=== PATIENT | female | born 1985 | race Caucasian/White ===

== ENCOUNTER 2019-12-07 13:20 | Inpatient (IN) | payer BC ==
[~2019-12-07] VITALS: Ht 157.5 cm; Wt 83.9 kg
[2019-12-07 13:54] VITALS: BP 114/67; BMI 33.9
[2019-12-07 14:18] LABS: BASOPHILS 0.2 % (0-2); EOSINOPHILS 1.4 % (0-7); HEMATOCRIT 40.1 % (36.0-48.0); HEMOGLOBIN 13.5 g/dL (12-16); IMMATURE GRANULOCYTES 0.2 % (0-5); LYMPHOCYTES 12.5 % (15-50); MCH 31.6 pg (26.0-34.0); MCHC 33.7 g/dL (31.0-37.0); MCV 93.9 fL (80.0-100.0); MEAN PLATELET VOLUME 9.1 fL (7.4-10.4); MONOCYTES 8.5 % (2-11); NEUTROPHILS 77.2 % (40-80); PLATELET COUNT 193 10x3/uL (130-400); RBC 4.27 10x6/uL (4.00-5.40); RDW 13.7 % (11.5-14.5)
[2019-12-07 14:33] LABS: CALC OSMOLALITY 268 mosm/kg (275-300); CALCIUM 8.2 mg/dL (8.5-10.1); CARBON DIOXIDE 26.7 mmol/L (21.0-32.0); CHLORIDE - SERUM 101 mmol/L (98-107); CREATININE - SERUM 0.9 mg/dL (0.6-1.3); GLUCOSE 98 mg/dL (74-106); POTASSIUM - SERUM 3.9 mmol/L (3.5-5.1); SODIUM 135 mmol/L (136-145); UREA NITROGEN 9 mg/dL (7-18); eGFR NON AFRICAN AMERICAN 76 mL/min (90-120)
[2019-12-07 14:37] LABS: C-REACTIVE PROTEIN 15.5 mg/dL (0.0-0.9)
[2019-12-07 14:39] LABS: INR 3.38 (0.85-1.17); PROTIME 33.5 SECONDS (11.6-15.0)
--- NOTE | 2019-12-07 14:42 | NUR ---
RN INSERTED 20G PIV INTO RIGHT FOREARM, PT TOLERATED WELL.
[2019-12-07 15:19] LABS: ERYTHROCYTE SEDIMENTATION RATE 12 mm/hr (0-20)
[2019-12-07 16:33] VITALS: BP 129/62
[2019-12-07 20:00] VITALS: BP 126/70
[2019-12-08 00:18] VITALS: BP 132/69
[2019-12-08 04:00] VITALS: BP 130/72
[2019-12-08 05:36] LABS: BASOPHILS 0.4 % (0-2); EOSINOPHILS 2.1 % (0-7); HEMATOCRIT 37.6 % (36.0-48.0); IMMATURE GRANULOCYTES 0.1 % (0-5); LYMPHOCYTES 21.1 % (15-50); MCH 30.7 pg (26.0-34.0); MCHC 31.9 g/dL (31.0-37.0); MONOCYTES 12.8 % (2-11); NEUTROPHILS 63.5 % (40-80); PLATELET COUNT 192 10x3/uL (130-400); RBC 3.91 10x6/uL (4.00-5.40); RDW 14.2 % (11.5-14.5)
[2019-12-08 05:38] LABS: MCV 96.2 fL (80.0-100.0); WBC 7.1 10x3/uL (4.8-10.8)
[2019-12-08 05:49] LABS: CALC OSMOLALITY 280 mosm/kg (275-300); CALCIUM 8.2 mg/dL (8.5-10.1); CHLORIDE - SERUM 107 mmol/L (98-107); CREATININE - SERUM 0.7 mg/dL (0.6-1.3); GLUCOSE 100 mg/dL (74-106); POTASSIUM - SERUM 4.2 mmol/L (3.5-5.1); SODIUM 140 mmol/L (136-145); UREA NITROGEN 18 mg/dL (7-18); eGFR NON AFRICAN AMERICAN > 90 mL/min (90-120)
[2019-12-08 06:24] LABS: INR 3.6 (0.85-1.17); PROTIME 35.2 SECONDS (11.6-15.0)
[2019-12-08 09:42] VITALS: BP 112/68
[2019-12-08 12:47] VITALS: Ht 157.5 cm; Wt 83.9 kg
[2019-12-08 12:52] VITALS: BP 107/56
[2019-12-08 17:15] VITALS: BP 106/51
[2019-12-08 20:00] VITALS: BP 127/63
[2019-12-08 22:06] LABS: BILIRUBIN NEGATIVE (NEGATIVE); GLUCOSE NEGATIVE (NEGATIVE); KETONE NEGATIVE (NEGATIVE); NITRITE NEGATIVE (NEGATIVE); UROBILINOGEN NORMAL (NORMAL)
[2019-12-08 22:10] LABS: BACTERIA FEW /hpf (NEGATIVE); EPITHELIAL CELLS 0-5 /hpf (0-5); RED CELLS - URINE 0-5 /hpf (0-5); WHITE CELLS - URINE NSEEN /hpf (NEGATIVE)
[2019-12-09] VITALS: BP 131/60
[2019-12-09 04:00] VITALS: BP 125/64
[2019-12-09 07:12] LABS: INR 2.2 (0.85-1.17); PROTIME 24.1 SECONDS (11.6-15.0)
--- NOTE | 2019-12-09 09:00 | NUR ---
DRESSING CHANGED TO LEFT ARM WITH SPLINT REAPPLIED. IV RESITED TO RIGHT FOREARM. NORCO GIVEN FOR PAIN 12/16 AND EFFECTIVE. DECREASE ERRYTHEMA AND EDEMA NOTED WITH ARM ELEVATED AND CAP REFILL <3 SEC.
[2019-12-09 09:07] VITALS: BP 128/83
[2019-12-09 13:48] VITALS: BP 153/66
[2019-12-09 17:03] VITALS: BP 152/81
[2019-12-09 20:00] VITALS: BP 137/68
[2019-12-10] VITALS: BP 142/70
--- NOTE | 2019-12-10 02:10 | NUR ---
I have reviewed this patient and I concur with the Shift Assessment completed by the Licensed Practical Nurse today this shift.
[2019-12-10 06:11] LABS: BASOPHILS 0.7 % (0-2); EOSINOPHILS 2.3 % (0-7); HEMATOCRIT 39.3 % (36.0-48.0); HEMOGLOBIN 12.6 g/dL (12-16); IMMATURE GRANULOCYTES 0.4 % (0-5); LYMPHOCYTES 31.3 % (15-50); MCH 30.6 pg (26.0-34.0); MCHC 32.1 g/dL (31.0-37.0); MCV 95.4 fL (80.0-100.0); MEAN PLATELET VOLUME 9.2 fL (7.4-10.4); MONOCYTES 11.1 % (2-11); NEUTROPHILS 54.2 % (40-80); PLATELET COUNT 228 10x3/uL (130-400); RBC 4.12 10x6/uL (4.00-5.40); RDW 13.9 % (11.5-14.5); WBC 5.6 10x3/uL (4.8-10.8)
[2019-12-10 06:34] LABS: CALC OSMOLALITY 268 mosm/kg (275-300); CARBON DIOXIDE 28.3 mmol/L (21.0-32.0); CHLORIDE - SERUM 102 mmol/L (98-107); CREATININE - SERUM 0.7 mg/dL (0.6-1.3); GLUCOSE 110 mg/dL (74-106); POTASSIUM - SERUM 4.1 mmol/L (3.5-5.1); SODIUM 133 mmol/L (136-145); UREA NITROGEN 19 mg/dL (7-18); eGFR NON AFRICAN AMERICAN > 90 mL/min (90-120)
[2019-12-10 06:56] LABS: INR 1.51 (0.85-1.17)
--- NOTE | 2019-12-10 07:47 | HP ---
PATIENT: DENEEN KWOK MEDICAL RECORD: [id number] ACCOUNT: [id number] LOCATION:[facility] : 85 ADMISSION DATE: 12/07/19 PCP: HANNAH MORENO MD HISTORY AND PHYSICAL EXAMINATION REASON FOR ADMISSION: Left elbow pain and infection. HISTORY OF PRESENT ILLNESS: The patient is a 34-year-old female with complicated cardiac past history including subaortic stenosis, non-rheumatic aortic valve insufficiency with history of Ross procedure and aneurysm of the aortic root. She continues to be followed cardiac colvin at [facility]. She presents today with complaint of left elbow discomfort and redness. She was seen in the office on 12/05/2019 stating that she felt that she had been bitten by an insect of some type a day before. She did not see an insect, there was no itching and there was no ulcer. At that time, she had some erythema over the tip of the olecranon. No evidence of a break in the skin. She was placed empirically on Augmentin 500 mg t.i.d. and given 1 gram of Rocephin IM. She was told to ice and elevate and to see back today. She had advancing erythema. Now, her arm is erythematous up to her axilla on the left. This is extremely painful. She has difficulty totally extending the elbow. She denies fever, nausea or vomiting. For this reason, she is being directly admitted to the hospital for further evaluation and IV antibiotics. PAST MEDICAL HISTORY: Chronic anticoagulation for aortic valve repair, history of Ross procedure for subaortic stenosis, history of pulmonary valve replacement with bioprosthesis, left ventricular dilatation, aneurysm of the aortic root, nontraumatic aortic valve insufficiency, anxiety. PAST SURGICAL HISTORY: As above. ALLERGIES: None mentioned. CURRENT MEDICATIONS: Tylenol No. 3 p.r.n. pain, Xanax 1 mg one-half to one every 6 hours for anxiety, aspirin 81 mg a day, multivitamin 1 daily, B6 100 mg daily, Coumadin 7.5 mg Tuesday and , 5 mg other days. SOCIAL HISTORY: She is , nonsmoker, nondrinker currently. FAMILY HISTORY: Positive for father with hypertension, hyperlipidemia. Mother in good health. REVIEW OF SYSTEMS: GENERAL: No fever or fatigue. RESPIRATORY: No SOB or cough. CARDIAC: No chest pain or claudication. GASTROINTESTINAL: No nausea, vomiting, change in stools or blood per rectum. GENITOURINARY: No incontinence. GYNECOLOGIC: No vaginal bleeding. ENDOCRINE: Denies polyuria, polydipsia, heat or cold intolerance. NEUROLOGIC: No history of stroke, TIA, or vascular headaches. INTEGUMENT: Spreading erythema on her left elbow, forearm up to her left axilla, warm to the touch. MUSCULOSKELETAL: She has pain in the left olecranon, somewhat difficult to totally extend her forearm at the elbow causing pain. NEUROVASCULAR: Intact. HISTORY AND PHYSICAL [id number] DENEEN KWOK LABORATORY AND DIAGNOSTIC DATA: Her initial labs are currently pending. X-ray is currently pending. ASSESSMENT: Spontaneous cellulitis of the left elbow and olecranon with advancing erythema, history of subaortic stenosis, non-rheumatic aortic valve insufficiency, pulmonary valve replacement, aneurysm of aortic root, history of Ross procedure, chronic anticoagulation. PLAN: The patient will be admitted to the hospital. She will have the cultures performed, placed empirically on IV vancomycin with pharmacy dosing, Merrem and orthopedic consult. TRANSINT:[id number] Voice Confirmation ID: [id number] DOCUMENT ID: [id number] HANNAH MORENO MD at 0747 CC: [id number] DICTATION DATE: 12/07/19 1229 BUSINESS INTELLIGENCE MANAGER: 12/07/19 1726 ADM IN [place] [id number] [place] [address]
[2019-12-10] MEDS ORDERED: COUMADIN5 MG PO (07:57)
[2019-12-10] MEDS ORDERED: FLORAJEN3 CAPS460 MG PO (07:57)
[2019-12-10] MEDS ORDERED: ASPIRIN81 MG PO (07:57)
[2019-12-10] MEDS ORDERED: COUMADIN7.5 MG PO (07:57)
[2019-12-10] MEDS ORDERED: VITAMIN B6 PO (07:58)
[2019-12-10] MEDS ORDERED: CLEOCIN HCL300 MG PO (07:59)
--- NOTE | 2019-12-10 08:30 | NUR ---
PATIENT IN BED WITH IV INTACT. NO COMPLAINTS OR SIGNS OF DISTRESS. CALL LIGHT WITHIN REACH.
[2019-12-10 08:41] VITALS: BP 142/77
--- NOTE | 2019-12-10 12:15 | NUR ---
PATIENT RECIEVED DC INSTRUCTIONS. VERBALIZED UNDERSTANDING. IV REMOVED WITH CATH TIP INTACT. PATIENT WAITING FOR TRANSPORTATION FOR DC.
== END 2019-12-10 13:35 | disposition home or self-care (01) | DRG 558 ==
LOC: D.MS 13:20
PROVIDERS: Family Medicine; ADMIT Family Medicine; ATTEND Family Medicine
DX: M71.122 Other infective bursitis, left elbow (principal); L03.114 Cellulitis of left upper limb; Z79.01 Long term (current) use of anticoagulants